=== PATIENT | female | born 1960 | race Two or more races ===

== ENCOUNTER → 2018-04-24 | Day surgery (SDC) | payer OTHER ==
[~2018-04-24] MED LIST: MORGIDOX100 MG PO; NAPR500T14 PO; VITAMIN D10000 UNIT PO; ZINC LOZENGES1 EACH PO
== END | disposition home or self-care (01) ==
LOC: ADM 04-22 12:30 → CIR.AMB 07:00
DX: N84.0 Polyp of corpus uteri (principal); D25.0 Submucous leiomyoma of uterus